=== PATIENT | female | born 1995 | race Caucasian/White ===

== ENCOUNTER 2017-10-01 13:33 | Emergency (ER) | payer OTHER ==
--- NOTE | 2017-10-01 15:52 | RAD ---
INDICATION: Left lower leg pain COMPARISON: None TECHNIQUE: AP and lateral views were obtained. FINDINGS: The bony structures, joint spaces, and soft tissues are normal for age. IMPRESSION: NEGATIVE EXAMINATION.
[2017-10-01 16:23] VITALS: BP 127/73
--- NOTE | 2017-10-01 17:09 | ED ---
Lower Extremity - HPI Summary HPI Summary: Patient is an otherwise healthy 21-year-old female presenting to the ED with chief complaint of left lower extremity discoloration. She endorses falling 3 weeks ago and bruising the anterior portion of the left lower leg. She is concerned due to the ecchymosis not resolving. Denies any numbness, tingling, temperature change to the ipsilateral leg. Denies any knee pain or ankle pain. She is ambulating well. She has taken ibuprofen after it first began, but denies any recently. She has not used ice, heat or anything else for relief. She denies taking any medications including blood thinners. Denies any calf pain and she has full range of motion of the knee and ankle joint without pain. - History of Current Complaint Chief Complaint: EDExtremityLower Stated Complaint: LT LEG PAIN/FALL Time Seen by Provider: 10/01/17 14:38 Hx Obtained From: Patient Mechanism Of Injury: Blunt Trauma Onset/Duration: Weeks Severity Initially: Mild Severity Currently: Mild Pain Intensity: 0 Pain Scale Used: 0-10 Numeric Timing: Constant Location: Is Discrete @ - Left anterior lower leg Character Of Pain: Aching Associated Signs And Symptoms: Positive: Bruising Aggravating Factor(s): Standing, Ambulation Alleviating Factor(s): Rest Able to Bear Weight: Yes - Risk Factors Gout Risk Factors: Negative DVT Risk Factors: Negative Septic Arthritis Risk Factor: Negative PMH/Surg Hx/FS Hx/Imm Hx Previously Healthy: Yes - Immunization History Hx Pertussis Vaccination: No Immunizations Up to Date: Unable to Obtain/Confirm Infectious Disease History: No Infectious Disease History: Denies: Traveled Outside the [place] in Last 30 Days - Social History Occupation: Unemployed, Student Lives: With Family Alcohol Use: Rare Hx Substance Use: No Substance Use Type: Reports: None Smoking Status (MU): Never Smoked Tobacco Review of Systems Constitutional: Negative Negative: Fever, Chills, Fatigue Eyes: Negative Cardiovascular: Negative Positive: Other. Negative: Shortness Of Breath, Cough Genitourinary: Negative Positive: no symptoms reported, see HPI Positive: Arthralgia, Myalgia Skin: Negative Neurological: Negative All Other Systems Reviewed And Are Negative: Yes Physical Exam Triage Information Reviewed: Yes Vital Signs On Initial Exam: Initial Vitals Temp Pulse Resp BP Pulse Ox 98.5 F 86 14 138/77 98 10/01/17 13:36 10/01/17 13:36 10/01/17 13:36 10/01/17 13:36 10/01/17 13:36 Vital Signs Reviewed: Yes Appearance: Positive: Well-Appearing, Well-Nourished Skin: Positive: Skin Color Reflects Adequate Perfusion, Other - Bruising to the anterior lower extremity Head/Face: Positive: Normal Head/Face Inspection Eyes: Positive: EOMI, MONICA, Conjunctiva Clear Neck: Positive: Supple, No Lymphadenopathy Respiratory/Lung Sounds: Positive: Clear to Auscultation, Breath Sounds Present Cardiovascular: Positive: RRR, Pulses are Symmetrical in both Upper and Lower Extremities Musculoskeletal: Positive: Normal, Strength/ROM Intact Neurological: Positive: Speech Normal Psychiatric: Positive: Normal, Affect/Mood Appropriate AVPU Assessment: Alert Diagnostics - Vital Signs Vital Signs Temp Pulse Resp BP Pulse Ox 10/01/17 16:22 99.2 F 72 16 127/73 100 10/01/17 13:36 98.5 F 86 14 138/77 98 - Laboratory Lab Statement: Any lab studies that have been ordered have been reviewed, and results considered in the medical decision making process. Lower Extremity Course/Dx - Course Course Of Treatment: She denies any pain, however is concerned with a hairline fracture due to the left lower extremity ecchymosis to the anterior portion of the leg. X-ray obtained and is negative for any acute findings. She is made aware of this and is okay with plan and discharge of ibuprofen and moist heat to the area to promote blood flow. I am not concerned with a blood clot from trauma at this time as she is having no pain, no erythema, warmth. I believe the hematoma is taking longer than usual to resolve. - Diagnoses Provider Diagnoses: Hematoma Discharge - Discharge Plan Condition: Stable Disposition: HOME Patient Education Materials: Hematoma (ED) Referrals: [facility] [Primary Care Provider] - Additional Instructions: Ibuprofen 600 mg 3 times daily for inflammation and to promote blood flow Moist heat to the area to promote blood flow and breakup of any hematoma If he develop any temperature changes to the leg or develop any numbness or tingling, return to the ED immediately
== END 2017-10-01 16:22 | disposition home or self-care (01) ==
LOC: ED 13:33
DX: S80.12XA Contusion of left lower leg, initial encounter (principal); W19.XXXA Unspecified fall, initial encounter; Y92.9 Unspecified place or not applicable
CPT/HCPCS: 99281

== ENCOUNTER 2017-11-24 18:57 | Emergency (ER) | payer OTHER ==
[2017-11-24 19:13] VITALS: BP 121/73
--- NOTE | 2017-11-26 23:10 | UC ---
Yoana Beal Gabriel, scribed for Margo Brownlee MD on 11/24/17 at 1935 . HPI Febrile Illness - HPI Summary HPI Summary: This patient is a 22 year old F presenting to [facility] with a chief complaint of a fever of 102 that began earlier today. The patient rates the pain 4/10 in severity. Patient reports sore throat, dry cough, diaphoresis, and chills. Patient denies ear pain and rash. Pt has had positive exposure to sick persons. - History of Current Complaint Chief Complaint: UCRespiratory Hx Obtained From: Patient Hx Last Menstrual Period: NOW Onset/Duration: Still Present Timing: Constant Temperature: 102 F Initial Severity: Mild Current Severity: Mild Pain Intensity: 4 Pain Scale Used: 0-10 Numeric Associated Signs and Symptoms: Other: - sore throat, dry cough, diaphoresis, chills, - Allergy/Home Medications Allergies/Adverse Reactions: Allergies Allergy/AdvReac Type Severity Reaction Status Date / Time Cephalosporins Allergy BRUISING Verified 11/24/17 19:13 Penicillins Allergy BRUISING Verified 11/24/17 19:13 Home Medications: Home Medications Albuterol HFA INHALER* [Ventolin HFA Inhaler*] PRN 11/24/17 [History] Fexofenadine (NF) [Julia (NF)] 60 mg PO DAILY 11/24/17 [History Confirmed ] Ibuprofen TAB* [Advil TAB*] 400 mg PO ONCE PRN 11/24/17 [History Confirmed 11/24] Sertraline* [Zoloft*] 50 mg PO DAILY 11/24/17 [History Confirmed 11/24/17] guaiFENesin ER TAB [Mucinex*] 600 mg PO ONCE PRN 11/24/17 [History Confirmed ] PMH/Surg Hx/FS Hx/Imm Hx Respiratory History: Asthma GI/ History: Other Other GI/ History: PCOS, Endometriosis Psychological History: Depression - Surgical History Surgical History: None - Social History Occupation: Student Lives: Dormitory/Roommates Alcohol Use: Occasionally Substance Use Type: None Smoking Status (MU): Never Smoked Tobacco Review of Systems Constitutional: Fever, Chills, Other - diaphoresis ENT: Sore Throat Respiratory: Cough All Other Systems Reviewed And Are Negative: Yes Physical Exam - Summary Physical Exam Summary: Appearance: Well-Nourished Eye Exam: Normal ENT Exam: bilateral TMs are pérez, tonsils are mildly swollen and red. Uvula is mildly swollen. No sores or exudate Neck: anterior cervical lymphadenopathy Respiratory Exam: Normal, no dyspnea, no tachypnea, normal respiratory rate Cardiovascular Exam: Normal Cardiovascular: Heart rate regular, good general skin color, good capillary refill, RRR, No Murmur, Pulses Normal - sitting up. Abdominal Exam: Normal Abdomen Description: Nontender, No Organomegaly, Soft Bowel Sounds: Present Musculoskeletal Exam: Normal Musculoskeletal: Strength Intact Neurological Exam: Normal: nonfocal, grossly intact Psychological Exam: Normal: conversing easily and appropriately Skin Exam: Normal: no visible or reported rash Triage Information Reviewed: Yes Appearance: Well-Nourished Vital Signs: Initial Vital Signs Temp 97.9 F 11/24/17 19:10 Pulse 62 11/24/17 19:10 Resp 16 11/24/17 19:10 BP 121/73 11/24/17 19:10 Pulse Ox 100 11/24/17 19:10 Vital Signs Reviewed: Yes Course/Dx - Course Course Of Treatment: + Strep test. D/w pt coa / tx plan. She has had several episodes of strep throat over the last few months. Carrier?? Will check monospot (ebv if monosp neg). Rx azithromycin - high dose. Questions as posed answered to the best of my ability. - Diagnoses Clinic Provider Diagnoses: Strep throat +. Pharyngitis. See above. Discharge - Sign-Out/Discharge Documenting (check all that apply): Discharge/Admit/Transfer - Discharge Plan Condition: Stable Disposition: HOME Prescriptions: Azithromycin TAB* [Zithromax TAB (Z-ZAINA) 250 mg #6 tabs] 500 mg PO DAILY 5 Days #10 tab Fluconazole [Diflucan 150 MG (NF)] 150 mg PO DAILY #2 tab Patient Education Materials: Strep Throat (ED) Forms: *School Release Referrals: [facility] [place] [facility] [Primary Care Provider] - Additional Instructions: Strep throat test positive today. You have a blood test for mononucleosis as well. Please follow up with your primary care physician, upon your return home to [place]. Please follow up with Tea SHERWOOD in 1-2 weeks. Please seek medical attention for worse or new problems. - Billing Disposition and Condition Condition: STABLE Disposition: HOME The documentation as recorded by the Yoana lea Gabriel accurately reflects the service I personally performed and the decisions made by me, Margo Brownlee MD.
--- NOTE | 2017-11-27 18:28 | UC ---
- Progress Note Progress Note: Jose RN received call from pt that she has been taking zpak for positive strep - feels no better and still has temp of 101F today. Pt says that she has had a positive strep resistant to zpak in the past. Will have her stop zpak and rx for Amoxicillin 500mg BID for 1 week. Pt says she has had amoxicillin in the past with the side effect of "bruising", but isn't sure if that was even from the amoxicillin that she took. Since that time of bruising - she has had amoxicillin without issue. Discharge - Sign-Out/Discharge Documenting (check all that apply): Post-Discharge Follow Up - Discharge Plan Condition: Stable Disposition: HOME Prescriptions: Amoxicillin PO (*) [Amoxicillin 500 MG CAP*] 500 mg PO Q12H #20 cap Fluconazole [Diflucan 150 MG (NF)] 150 mg PO DAILY #2 tab Patient Education Materials: Strep Throat (ED) Forms: *School Release Referrals: [facility] [place] [facility] [Primary Care Provider] - Additional Instructions: Strep throat test positive today. You have a blood test for mononucleosis as well. Please follow up with your primary care physician, upon your return home to [place]. Please follow up with Tea SHERWOOD in 1-2 weeks. Please seek medical attention for worse or new problems. - Billing Disposition and Condition Condition: STABLE Disposition: HOME
== END 2017-11-24 20:05 | disposition home or self-care (01) ==
LOC: UCEAST 18:57
DX: J02.0 Streptococcal pharyngitis (principal); R05 Cough; J45.909 Unspecified asthma, uncomplicated; E28.2 Polycystic ovarian syndrome; N80.9 Endometriosis, unspecified; F32.9 Major depressive disorder, single episode, unspecified; Z88.1 Allergy status to other antibiotic agents; Z88.0 Allergy status to penicillin
CPT/HCPCS: 36415; 86308; 86664; 86665; 87651; 99212; G0463

== ENCOUNTER 2018-04-12 13:42 | Emergency (ER) | payer OTHER ==
[2018-04-12 13:56] VITALS: BP 122/76
--- NOTE | 2018-04-12 14:33 | UC ---
Respiratory Complaint HPI - HPI Summary HPI Summary: 22 yo female presents with fatigue, body aches, diarrhea, and sinus congestion. She tells me that over the last month she has been having abdominal cramping - she was seen by her PCP back home in [place] and was told she has "mild crohn's". Over the last week has noticed an increase in diarrhea. She admits that she has eaten from the local taco truck and diarrhea seemed to begin the next day. Over the last week she has also developed general body aches, fatigue, and sinus congestion. She has a history of lyme disease treated x2 with doxy. Hx of mono x2. Denies fever, cough, SOB, chest pain, n/v, dysuria, vaginal discharge, or flank pain. - History of Current Complaint Chief Complaint: UCRespiratory Stated Complaint: COUGH,FEVER Time Seen by Provider: 04/12/18 14:33 Hx Obtained From: Patient Hx Last Menstrual Period: 03/31/18 Onset/Duration: Gradual Onset Severity Currently: None Pain Intensity: 0 - Allergies/Home Medications Allergies/Adverse Reactions: Allergies Allergy/AdvReac Type Severity Reaction Status Date / Time Cephalosporins Allergy BRUISING Verified 11/24/17 19:13 PMH/Surg Hx/FS Hx/Imm Hx - Additional Past Medical History Additional PMH: Lyme disease Respiratory History: Asthma Psychological History: Anxiety, Depression - Surgical History Surgical History: None - Family History Known Family History: Positive: None - Social History Occupation: Employed Full-time Lives: With Family Alcohol Use: Occasionally Substance Use Type: None Smoking Status (MU): Never Smoked Tobacco Review of Systems Constitutional: Fatigue Skin: Negative Eyes: Negative ENT: Nasal Discharge, Sinus Congestion, Sinus Pain/Tenderness Respiratory: Cough Cardiovascular: Negative Gastrointestinal: Diarrhea Genitourinary: Negative Neurovascular: Negative Neurological: Negative Psychological: Negative All Other Systems Reviewed And Are Negative: Yes Physical Exam - Summary Physical Exam Summary: GENERAL: NAD. WDWN. No pain distress. SKIN: No rashes, sores, lesions, or open wounds. HEENT: Head: AT/NC Eyes: EOM intact. Conjunctiva clear without inflammation or discharge. Ears: Hearing grossly normal. TMs intact, no bulging, erythema, or edema. Nose: Nasal mucosa mildly swollen and erythematous with clear discharge. TTP maxillary sinus. Throat: Posterior oropharynx without exudates, erythema, or tonsillar enlargement. Uvula midline. NECK: Supple. Nontender. No lymphadenopathy. CHEST: CTAB. No r/r/w. No accessory muscle use. Breathing comfortably and in no distress. CV: RRR. Without m/r/g. Pulses intact. ABDOMEN: Soft. NTTP. No distention or guarding. No CVA tenderness. Bowel sounds present NEURO: Alert. PSYCH: Age appropriate behavior. Triage Information Reviewed: Yes Vital Signs: Initial Vital Signs Temp 98.7 F 04/12/18 13:54 Pulse 99 04/12/18 13:54 Resp 16 04/12/18 13:54 BP 122/76 04/12/18 13:54 Pulse Ox 99 04/12/18 13:54 Vital Signs Reviewed: Yes UC Diagnostic Evaluation - Laboratory O2 Sat by Pulse Oximetry: 99 Respiratory Course/Dx - Course Course Of Treatment: Sinusitis. Pt was provided with a stool kit for cultures. Will draw for CBC, CMP, Ross, and lyme - Differential Dx/Diagnosis Provider Diagnoses: Sinusitis. Fatigue. Body aches Discharge - Sign-Out/Discharge Documenting (check all that apply): Patient Departure All imaging exams completed and their final reports reviewed: No Studies - Discharge Plan Condition: Stable Disposition: HOME Prescriptions: Amoxicillin/Clavulanate TAB* [Augmentin TAB 875*] 875 mg PO BID #20 tab Patient Education Materials: Sinusitis (ED) Forms: *School Release Referrals: [facility] [place] [facility] [Primary Care Provider] - Additional Instructions: If you develop a fever, shortness of breath, chest pain, new or worsening symptoms - please call your PCP or go to the ED. - Billing Disposition and Condition Condition: STABLE Disposition: Home
[2018-04-12 19:21] LABS: ABS Basophils 0 10^3/ul (0-0.2); ABS Eosinophils 0.1 10^3/ul (0-0.6); ABS Lymphocytes 1.4 10^3/ul (1.0-4.8); ABS Monocytes 0.4 10^3/ul (0-0.8); ABS Nucleated RBC 0 10^3/ul; Eosinophil % 1.9 % (0-6); Hematocrit 38 % (35-47); Lymphocyte % 36.1 % (25-47); Mean Corpuscular HGB Conc 34 g/dl (31-36); Mean Corpuscular Hemoglobin 31 pg (27-31); Mean Corpuscular Volume 92 fL (80-97); Mean Platelet Volume 9.1 um3 (7.4-10.4); Nucleated Red Blood Cells % 0.1; Platelet Count 249 10^3/ul (150-450); Red Blood Count 4.17 10^6/ul (4.00-5.40); Red Cell Distribution Width 13 % (10.5-15); White Blood Count 3.9 10^3/ul (3.5-10.8)
[2018-04-12 19:40] LABS: EGFR Non-African American 101.6 (>60)
--- NOTE | 2018-04-16 19:37 | UC ---
- Progress Note Progress Note: neg shiga neg enteric pathogen neg rotavirus, no change ljj 04/16/18 Discharge - Sign-Out/Discharge Documenting (check all that apply): Post-Discharge Follow Up All imaging exams completed and their final reports reviewed: No Studies - Discharge Plan Condition: Stable Disposition: HOME Prescriptions: Amoxicillin/Clavulanate TAB* [Augmentin TAB 875*] 875 mg PO BID #20 tab Patient Education Materials: Sinusitis (ED) Forms: *School Release Referrals: [facility] [place] [facility] [Primary Care Provider] - Additional Instructions: If you develop a fever, shortness of breath, chest pain, new or worsening symptoms - please call your PCP or go to the ED. - Billing Disposition and Condition Condition: STABLE Disposition: Home
== END 2018-04-12 14:55 | disposition home or self-care (01) ==
LOC: UCEAST 13:42
DX: J32.9 Chronic sinusitis, unspecified (principal); R53.83 Other fatigue; M79.1 Myalgia; Z88.1 Allergy status to other antibiotic agents
CPT/HCPCS: 36415; 80053; 85025; 86308; 86618; 86664; 86665; 99212; G0463

== ENCOUNTER 2018-06-01 13:22 | Emergency (ER) | payer OTHER ==
[2018-06-01 14:24] VITALS: BP 117/64
--- NOTE | 2018-06-01 15:21 | UC ---
Throat Pain/Nasal Reji HPI - HPI Summary HPI Summary: 22 year old female presents with persistent sore throat, bilateral ear pain, congestion, and occasional non-productive cough associated with fatigue, mild body aches, and intermittent abdominal cramping and diarrhea. She was initially evaluated at this facility for same complaints on 04/12/2018. She has history of Lyme disease x 2 treated with doxycycline on each instance, mononucleosis x 2 , and a recent diagnosis of mild Crohn's. Labs from previous visit showed normal CBC and CMP, stool studies showed negative H. pylori, shiga negative, enteric pathogen negative, rotavirus negative, Lyme negative, mono spot negative , but EBV IgG positive, EBV IgM equivocal, and EBV nuclear antigen positive. She was treated with a course of Augmentin at that visit and states had no change in symptoms. States after 3-4 weeks symptoms did improve but never fully resolved and over last week have begun to worsen again. Denies fever, chills, rash, chest pain, shortness of breath, nausea, vomiting, blood in stools, melena , dysuria, frequency, or urgency. - History of Current Complaint Chief Complaint: UCGeneralIllness Stated Complaint: SORE THROAT COUGH CONGESTION Time Seen by Provider: 06/01/18 14:54 Hx Obtained From: Patient Hx Last Menstrual Period: 05/10/18 Onset/Duration: Gradual Onset, Lasting Weeks Severity: Mild Pain Intensity: 3 Cough: Nonproductive Associated Signs & Symptoms: Positive: Sinus Discomfort, Nasal Discharge. Negative: Dysphagia, Wheezing, Fever, Vomiting, Rash - Allergies/Home Medications Allergies/Adverse Reactions: Allergies Allergy/AdvReac Type Severity Reaction Status Date / Time Cephalosporins Allergy BRUISING Verified 06/01/18 14:17 Home Medications: Home Medications guaiFENesin [Mucinex] 600 mg PO ONCE 06/01/18 [History Confirmed 06/01/18] PMH/Surg Hx/FS Hx/Imm Hx - Additional Past Medical History Additional PMH: Lyme, mononucelosis Other GI/ History: Crohn's Psychological History: Depression - Surgical History Surgical History: None - Family History Family History: Noncontributory - Social History Occupation: Student Lives: Dormitory/Roommates Alcohol Use: None Substance Use Type: None Smoking Status (MU): Never Smoked Tobacco Review of Systems Constitutional: Fatigue Skin: Negative Eyes: Negative ENT: Sore Throat, Ear Ache, Nasal Discharge, Sinus Congestion Respiratory: Cough Cardiovascular: Negative Gastrointestinal: Abdominal Pain, Diarrhea Genitourinary: Negative Musculoskeletal: Myalgia Is Patient Immunocompromised?: No All Other Systems Reviewed And Are Negative: Yes Physical Exam Triage Information Reviewed: Yes Appearance: Well-Appearing, No Pain Distress, Well-Nourished Vital Signs: Initial Vital Signs Temp 97.7 F 06/01/18 14:19 Pulse 85 06/01/18 14:19 Resp 16 06/01/18 14:19 BP 117/64 06/01/18 14:19 Pulse Ox 100 06/01/18 14:19 Vital Signs Reviewed: Yes Eyes: Positive: Conjunctiva Clear. Negative: Discharge ENT: Positive: Pharyngeal erythema - Mild, Nasal congestion, Nasal drainage, TMs normal, Tonsillar swelling - 1+, Uvula midline. Negative: Tonsillar exudate , Trismus, Muffled voice, Sinus tenderness Neck: Positive: Supple, Nontender, No Lymphadenopathy Respiratory: Positive: Lungs clear, Normal breath sounds, No respiratory distress Cardiovascular: Positive: RRR, No Murmur Abdomen Description: Positive: Nontender, No Organomegaly, Soft. Negative: CVA Tenderness (R), CVA Tenderness (L), Distended, Guarding Bowel Sounds: Positive: Present Musculoskeletal Exam: Normal Neurological: Positive: Alert Skin Exam: Normal Diagnostics - Laboratory Diagnostic Studies Completed/Ordered: Rapid strep negative. EBV pending. Liver panel pending. - Radiology No standard instances Radiology Interpretation Completed By: Radiologist Summary of Radiographic Findings: Patient Name: RHEA MADRIGAL Medical Record#: [id number]. Ordering Physician: Richar Marquez MATTRESS STRIPPER Acct.#: [id number]. : 1995 Age: 22 Sex: F Location: [facility] [place]. Exam Date: 06/01/18 1531 ADM Status: REG ER. Order Information: CHEST PA LAT 2 VWS. Accession Number: [id number]. CPT: 49624. INDICATION: 3 weeks nonproductive cough. Fever. Shortness of breath. COMPARISON: No relevant prior exams available on the [facility] PACS for comparison. TECHNIQUE: Dual energy PA and routine lateral views of the chest were obtained. REPORT: Clear lungs and pleural spaces. Negative for pneumothorax. The heart, pulmonary. vasculature, and mediastinal contours are unremarkable. Unremarkable osseous structures. and soft tissue contours. IMPRESSION: #. No evidence for pneumonia. Negative exam. Throat Pain/Nasal Course/Dx - Course Course Of Treatment: 22 year old female with several week history of broad constellation of URI symptoms as well as intermittent abdominal cramping and diarrhea. She was previously evaluated for these same symptoms on 04/12/2018 at this facility with essentially normal labs except EBV testing showing past infection as well as an equivocal IgM which may represent an early reinfection. Will plan to repeat testing today. Her exam was unremarkable except for some mild nasal congestion, pharyngeal erythema, and 1+ tonsillar edema without exudate. Rapid strep negative. She is requesting liver studies as these were elevated with previous episodes of mono. Recommend continued symptomatic care pending labs. She is to follow up at [facility] for persistent symptoms. Warning symptoms reveiwed. Verbalizes understanding and agrees with POC. - Differential Dx/Diagnosis Differential Diagnosis/HQI/PQRI: Mononucleosis, Pharyngitis, Sinusitis, Tonsillitis, URI Provider Diagnoses: Viral syndrome Discharge - Sign-Out/Discharge Documenting (check all that apply): Patient Departure All imaging exams completed and their final reports reviewed: No Studies - Discharge Plan Condition: Stable Disposition: HOME Patient Education Materials: Viral Syndrome (ED) Referrals: No Primary Care Phys,NOPCP [Primary Care Provider] - [facility] [Provider Group] - If Needed Additional Instructions: Your rapid strep test performed in the clinic today was negative. The chest x- ray was performed was normal. Review of your previous labs showed an undetermined infection for mono. We will repeat this test today as well as a liver panel as per your request. Use a saline rinse kit such as Neti Pot or NeilMed at least twice a day. Start fluticasone nasal spray 2 sprays each nostril once a day. Take an over the counter decongestant such as Sudafed according to directions as needed for nasal congestion. Take acetaminophen (Tylenol) or ibuprofen (Advil, Motrin) according to directions as needed for fever or pain. Use salt water gargles several times a day if you have a sore throat. You may also use Chloraseptic spray or Cepacol lozenges for some temporary pain relief from your sore throat. Follow-up with your primary care provider in 7 days if symptoms persist. Seek immediate medical attention if you have a persistent fever greater than 100.5 F despite taking acetaminophen or ibuprofen, you are unable to swallow, has difficulty breathing, or have any worsening of symptoms. - Billing Disposition and Condition Condition: STABLE Disposition: Home
--- NOTE | 2018-06-01 15:54 | RAD ---
INDICATION: 3 weeks nonproductive cough. Fever. Shortness of breath. COMPARISON: No relevant prior exams available on the [facility] PACS for comparison. TECHNIQUE: Dual energy PA and routine lateral views of the chest were obtained. REPORT: Clear lungs and pleural spaces. Negative for pneumothorax. The heart, pulmonary vasculature, and mediastinal contours are unremarkable. Unremarkable osseous structures and soft tissue contours. IMPRESSION: #. No evidence for pneumonia. Negative exam.
== END 2018-06-01 16:15 | disposition home or self-care (01) ==
LOC: UCEAST 13:22
DX: B34.9 Viral infection, unspecified (principal); Z88.1 Allergy status to other antibiotic agents
CPT/HCPCS: 36415; 71046; 80076; 86308; 86664; 86665; 87651; 99211; G0463

== ENCOUNTER → 2018-10-18 17:32 | Emergency (ER) | payer OTHER ==
[~2018-10-18 17:32] MED LIST: Al Hydrox/Mg Hydrox/Simet LIQ* 30 ML UDC PO ONE; Lidocaine 2% VISCOUS* 15 ML UDC PO ONE; Pantoprazole IV* 40 MG IV ONE; Sucralfate TAB* 1 GM PO ONE
--- NOTE | 2018-10-18 18:20 | ED ---
Abdominal Pain/Female - HPI Summary HPI Summary: A 23 y/o female presents to [facility] with a chief complain of abdominal pain since seven days ago. She has a Hx of ulcers and states that her symptoms are similar to when she has had an ulcer. She reports that she was having nausea, diarrhea and black tarry stools. She describes her abdominal pain as a discomfort and rates her pain as a 4/10 in severity. She states that having bread alleviates her pain. She also reports taking Zofran for her nausea, as she was prescribed it when she had the flu two weeks ago, taking Imodium and Tums. Vital signs while in room HR: 89 bpm, O2 Sat: 100, BP: 136/84. - History of Current Complaint Chief Complaint: EDAbdPain Stated Complaint: POSS STOMACH ULCER PER PT Time Seen by Provider: 10/18/18 18:08 Hx Obtained From: Patient Hx Last Menstrual Period: 05/10/18 Onset/Duration: Sudden Onset, Lasting Days, Still Present Timing: Days Severity Initially: Moderate Severity Currently: Moderate Pain Intensity: 4 Pain Scale Used: 0-10 Numeric Location: Diffuse Radiates: No Character: Other: - discomfort Aggravating Factor(s): Nothing Alleviating Factor(s): Other: - eating bread Associated Signs and Symptoms: Positive: Nausea, Diarrhea, Other: - black tarry stool. Negative: Fever Allergies/Adverse Reactions: Allergies Allergy/AdvReac Type Severity Reaction Status Date / Time Cephalosporins AdvReac BRUISING Verified 10/18/18 17:38 PMH/Surg Hx/FS Hx/Imm Hx Respiratory History: Denies: Hx Asthma Sensory History: Reports: Hx Contacts or Glasses Denies: Hx Deafness Infectious Disease History: No Infectious Disease History: Denies: Traveled Outside the [place] in Last 30 Days - Family History Known Family History: Negative: Blood Disorder - Social History Alcohol Use: Occasionally Hx Substance Use: No Substance Use Type: Reports: None Smoking Status (MU): Never Smoked Tobacco Review of Systems Negative: Fever Positive: Abdominal Pain, Diarrhea, Nausea, Other - positive: black tarry stools All Other Systems Reviewed And Are Negative: Yes Physical Exam - Summary Physical Exam Summary: Appearance: The patient is well-nourished in no acute distress and in no acute pain. Skin: The skin is warm and dry and skin color reflects adequate perfusion. HEENT: The head is normocephalic and atraumatic. The pupils are equal and reactive. The conjunctivae are clear and without drainage. Nares are patent and without drainage. Mouth reveals moist mucous membranes and the throat is without erythema and exudate. The external ears are intact. The ear canals are patent and without drainage. The tympanic membranes are intact. Neck: The neck is supple with full range of motion and non-tender. There are no carotid bruits. There is no neck vein distension. Respiratory: Chest is non-tender. Lungs are clear to auscultation and breath sounds are symmetrical and equal. Cardiovascular: Heart is regular rate and rhythm. There is no murmur or rub auscultated. There is no peripheral edema and pulses are symmetrical and equal. Abdomen: Mild epigastric tenderness. There are normal bowel sounds heard in all four quadrants and there is no organomegaly palpated. Musculoskeletal: There is no back tenderness noted. Extremities are non-tender with full range of motion. There is good capillary refill. There is no peripheral edema or calf tenderness elicited. Neurological: Patient is alert and oriented to person, place and time. The patient has symmetrical motor strength in all four extremities. Cranial nerves are grossly intact. Deep tendon reflexes are symmetrical and equal in all four extremities. Psychiatric: The patient has an appropriate affect and does not exhibit any anxiety or depression. Vital Signs On Initial Exam: Initial Vitals Temp Pulse Resp BP Pulse Ox 98.9 F 95 16 129/85 100 10/18/18 17:35 10/18/18 17:35 10/18/18 17:35 10/18/18 17:35 10/18/18 17:35 Diagnostics - Vital Signs Vital Signs Temp Pulse Resp BP Pulse Ox 10/18/18 17:35 98.9 F 95 16 129/85 100 - Laboratory Result Diagrams: 10/18/18 18:35 Lab Statement: Any lab studies that have been ordered have been reviewed, and results considered in the medical decision making process. Abdominal Pain Fem Course/Dx - Course Course Of Treatment: Ms. Mendes presents with a couple weeks of epigastric pain that seems to be related to eating. She's been having only bread which helps the pain. She's taken a bunch of [id number] medication such as Tums without much relief. She has a history remotely of having had an ulcer. She was mildly tender to palpation in the epigastrium and nontoxic in appearance with stable vital signs. Labs of been obtained and she's been given IV Protonix and by mouth sucralfate at this point. - Diagnoses Provider Diagnoses: Epigastric pain Discharge - Sign-Out/Discharge Documenting (check all that apply): Sign-Out Patient Signing out patient TO: Ct Toledo - Discharge Plan Referrals: No Primary Care Phys,NOPCP [Primary Care Provider] - - Attestation Statements Document Initiated by Jesus: Yes Documenting Scribe: Jose Viera Provider For Whom Jesus is Documenting (Include Credential): Marcos Ibarra MD Scribe Attestation: I, Jose Viera, scribed for Marcos Ibarra MD on 10/18/18 at 1856. Scribe Documentation Reviewed: Yes Provider Attestation: The documentation as recorded by the Jose lea accurately reflects the service I personally performed and the decisions made by me, Marcos Ibarra MD Status of Scribe Document: Viewed
[2018-10-18 18:47] LABS: ABS Basophils 0 10^3/ul (0-0.2); ABS Eosinophils 0 10^3/ul (0-0.6); ABS Lymphocytes 1.8 10^3/ul (1.0-4.8); ABS Monocytes 0.2 10^3/ul (0-0.8); ABS Neutrophils 2.6 10^3/ul (1.5-7.7); ABS Nucleated RBC 0 10^3/ul; Eosinophil % 0.4 %; Hematocrit 36 % (33-41); Hemoglobin 12.4 g/dL (12.0-16.0); Lymphocyte % 38.1 %; Mean Corpuscular HGB Conc 34 g/dL (31-36); Mean Corpuscular Hemoglobin 32 pg (27-31); Mean Corpuscular Volume 94 fL (80-97); Mean Platelet Volume 8.5 fL (7.4-10.4); Nucleated Red Blood Cells % 0.1; Platelet Count 210 10^3/uL (150-450); Red Blood Count 3.86 10^6 /uL (3.70-4.87); Red Cell Distribution Width 13 % (10.5-15); White Blood Count 4.7 10^3/uL (3.5-10.8)
[2018-10-18 19:02] LABS: ALT 13 U/L (7-52); AST 13 U/L (13-39); Albumin 3.9 g/dL (3.2-5.2); Albumin/Globulin Ratio 1.5 (1-3); Alkaline Phosphatase 43 U/L (34-104); Anion Gap 6 mmol/L (2-11); BUN/Creatinine Ratio 19.7 (8-20); Blood Urea Nitrogen 13 mg/dL (6-24); C Reactive Protein < 1.00 mg/L (<8.01); CO2 Carbon Dioxide 26 mmol/L (22-32); Calcium 8.9 mg/dL (8.6-10.3); Chloride 105 mmol/L (101-111); EGFR African American 136.8 (>60); EGFR Non-African American 113.1 (>60); Globulin 2.6 g/dL (2-4); Glucose 125 mg/dL (70-100); Potassium 3.5 mmol/L (3.5-5.0); Sodium 137 mmol/L (135-145); Total Protein 6.5 g/dL (6.4-8.9)
--- NOTE | 2018-10-18 19:14 | ED ---
Progress - Progress Note Progress Note: A 23 y/o female presents to [facility] with a chief complain of abdominal pain since seven days ago. Patient was signed out from Dr. Marcos Ibarra to Dr. Ct Toledo during a shift change, pending labs. Course/Dx - Course Course Of Treatment: Ms. Mendes presents with a couple weeks of epigastric pain that seems to be related to eating. She's been having only bread which helps the pain. She's taken a bunch of [id number] medication such as Tums without much relief. She has a history remotely of having had an ulcer. She was mildly tender to palpation in the epigastrium and nontoxic in appearance with stable vital signs. Labs of been obtained and she's been given IV Protonix and by mouth sucralfate at this point. Patient was seen by Dr. Toledo and discharged home with a dx of gastritis. - Diagnoses Provider Diagnoses: Gastritis Discharge - Sign-Out/Discharge Documenting (check all that apply): Patient Departure - D/C home, Receiving Sign -Out Receiving patient FROM: Marcos Ibarra - Pending labs Patient Received Moderate/Deep Sedation with Procedure: No - Discharge Plan Condition: Stable Disposition: HOME Prescriptions: Pantoprazole TAB * [Protonix TAB*] 40 mg PO DAILY #30 tab Patient Education Materials: Gastritis (ED) Referrals: Care [facility] [Outside] Additional Instructions: PLEASE RETURN TO THE ED TO IMMEDIATELY FOR WORSENING OR CONCERNING SYMPTOMS. - Billing Disposition and Condition Condition: STABLE Disposition: Home - Attestation Statements Document Initiated by Antonioe: Yes Documenting Scribe: Isiah Giraldo Provider For Whom Jesus is Documenting (Include Credential): tC Toledo MD Scribpranay Attestation: Isiah Beal scribed for Ct Toledo MD on 10/19/18 at 0555. Scribe Documentation Reviewed: Yes Provider Attestation: The documentation as recorded by the Isiah lea accurately reflects the service I personally performed and the decisions made by Annie ramírez MD Status of Scribe Document: Viewed
[2018-10-18 19:28] LABS: Urine Appearance Clear; Urine Bilirubin Negative (Negative); Urine Blood Negative (Negative); Urine Color Yellow; Urine Glucose Negative (Negative); Urine Ketones Negative (Negative); Urine Nitrite Negative (Negative); Urine Protein Negative (Negative); Urine Specific Gravity 1.014 (1.010-1.030); Urine Urobilinogen Negative (Negative)
[2018-10-18 21:08] VITALS: BP 133/82
== END | disposition home or self-care (01) ==
LOC: ED 17:32
DX: K29.70 Gastritis, unspecified, without bleeding (principal); R10.13 Epigastric pain; R19.7 Diarrhea, unspecified
CPT/HCPCS: 36415; 80053; 81003; 83605; 83690; 84702; 85025; 86140; 96374; 99283; A9270-GY

== ENCOUNTER 2018-11-23 11:24 | Emergency (ER) | payer OTHER ==
[2018-11-23 12:09] VITALS: BP 117/63
--- NOTE | 2018-11-23 12:52 | UC ---
UC General HPI - HPI Summary HPI Summary: 23 yo female c/o approx 4 days runny diarrhea, tummy rumbling, mid epig abd discomfort. Describes almost like a hunger sensation. No fever / chills. No sob /cp / cough. No rash. No dysuria. Has not been drinking fluids as much for concern of more diarrhea, but is able to take po ok. + nausea, no vomit. No rash. Sign pmh - recent trip to [facility] for spring, returned 2 weeks ago. 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 Has PCP in [place], [place]. - History of Current Complaint Chief Complaint: UCAbdominalPain Stated Complaint: STOMACH ISSUES Time Seen by Provider: 11/23/18 12:34 Hx Obtained From: Patient Hx Last Menstrual Period: 10/28/18 Pain Intensity: 2 - Allergy/Home Medications Allergies/Adverse Reactions: Allergies Allergy/AdvReac Type Severity Reaction Status Date / Time Cephalosporins AdvReac BRUISING Verified 11/23/18 12:09 PMH/Surg Hx/FS Hx/Imm Hx Previously Healthy: Yes - Surgical History Surgical History: None - Family History Known Family History: Positive: None Negative: Blood Disorder Family History: Noncontributory - Social History Alcohol Use: Occasionally Substance Use Type: None Smoking Status (MU): Never Smoked Tobacco Review of Systems All Other Systems Reviewed And Are Negative: Yes Constitutional: Positive: Other - see hpi Skin: Positive: Negative Eyes: Positive: Negative ENT: Positive: Other - ear fullness see hpi Respiratory: Positive: Negative Cardiovascular: Positive: Negative Gastrointestinal: Positive: Other - see hpi Genitourinary: Positive: Other - see hpi Motor: Positive: Negative Neurovascular: Positive: Negative Musculoskeletal: Positive: Negative Neurological: Positive: Negative Psychological: Positive: Negative Is Patient Immunocompromised?: No Physical Exam Triage Information Reviewed: Yes Appearance: Well-Appearing, Well-Nourished Vital Signs: Initial Vital Signs Temp 99.2 F 11/23/18 12:06 Pulse 68 11/23/18 12:06 Resp 18 11/23/18 12:06 BP 117/63 11/23/18 12:06 Pulse Ox 99 11/23/18 12:06 Vital Signs Reviewed: Yes Eye Exam: Normal ENT: Positive: Pharyngeal erythema, TM dull - Both TM's dull, pérez Post pharynx + red, no sores / exudates. MM a little dry, not cracked Neck exam: Normal Respiratory Exam: Normal Cardiovascular Exam: Normal Cardiovascular: Positive: RRR, No Murmur, Pulses Normal, Brisk Capillary Refill Abdominal Exam: Other - mild midepig tender, no r/g ++ incr bs, c/w diarrhea sx. Musculoskeletal Exam: Normal Neurological Exam: Normal - grossly nonfocal Psychological Exam: Normal - conversing easily and appropriately Skin Exam: Normal - nondiaphoretic no visible or reported rash Course/Dx - Course Course Of Treatment: Reviewed results as available. Reviewed coa / tx plan. Questions as posed answered to the best of my ability. Tried to give stool sample here, but was not able. She would like to take a stool kit to go home. - Diagnoses Provider Diagnosis: Diarrhea, Gastroenteritis Discharge - Sign-Out/Discharge Documenting (check all that apply): Patient Departure All imaging exams completed and their final reports reviewed: No Studies - Discharge Plan Condition: Stable Disposition: HOME Patient Education Materials: Gastroenteritis (ED), Acute Diarrhea (ED) Forms: *School Release Referrals: No Primary Care Phys,NOPCP [Primary Care Provider] - Additional Instructions: Drink lots of water. DO NOT LET YOURSELF GET DEHYDRATED. Please bring stool sample to the lab as soon as possible. You will be notified when the results come back. Please go to the Emergency Department for any problems, worse or new symptoms. Schedule a follow up appointment with your primary care physician in your home town, for when you are back home. Rapid strep test positive - Billing Disposition and Condition Condition: STABLE Disposition: Home
== END 2018-11-23 13:38 | disposition home or self-care (01) ==
LOC: UCEAST 11:24
DX: K52.9 Noninfective gastroenteritis and colitis, unspecified (principal); Z88.1 Allergy status to other antibiotic agents
CPT/HCPCS: 81003; 84702; 87651; 99211; G0463